=== PATIENT | female | born 1935 | race Caucasian/White ===

== ENCOUNTER → 2017-02-12 | Outpatient (CLI) | payer MEDICARE, OTHER ==
--- NOTE | 2017-02-12 11:24 | XR ---
EXAMINATION TYPE: XR knee complete LT DATE OF EXAM: 02/12/2017 11:11 AM CLINICAL HISTORY: Left knee pain after fall injury. TECHNIQUE: Three views of the left knee are obtained. COMPARISON: None. FINDINGS: There is no acute fracture/dislocation evident in left knee. There is tibial condylar spur ring. There is prominent spur from the superior anterior patellar distal quadriceps tendon attachmen t. The overlying soft tissue appears unremarkable. IMPRESSION: There is no acute fracture or dislocation in the left knee.
== END | disposition home or self-care (01) ==
LOC: RADXRMAIN 10:51
PROVIDERS: ATTEND Family Medicine
DX: S80.02XA Contusion of left knee, initial encounter (principal); X58.XXXA Exposure to other specified factors, initial encounter

== ENCOUNTER 2022-05-07 22:57 | Emergency (ER) | payer MEDICARE, OTHER ==
[2022-05-07 23:09] VITALS: RESP 16; TEMP 98.2
--- NOTE | 2022-05-08 00:29 | ED ---
Fall HPI - General Chief Complaint: Fall Stated Complaint: fall Time Seen by Provider: 05/07/22 23:27 Source: patient Mode of arrival: ambulatory - History of Present Illness Initial Comments: This patient is an 86-year-old woman who presents to be evaluated for right hip pain had come on after she had a fall tonight. Patient states that she fell approximately 8:45 PM. She states that she turned, lost her balance and fell on the kitchen floor. She then was not able to get up immediately. She did take Tylenol which gave some relief but she continues to have some pain she indicates the lateral aspect at the trochanter. Patient denies other injuries in the fall. There was no loss consciousness. At the initial history and physical exam the patient declines analgesics. MD Complaint: fall -: hour(s) Fall From: standing When Fall Occurred: 1-[address] Fall Occurred: home Loss of Consciousness: none Prolonged Down Time?: no Symptoms Prior to Fall: none Location - Extremities: Right: Thigh Severity: moderate Context: tripped/slipped Associated Symptoms: denies - Related Data Allergies Allergy/AdvReac Type Severity Reaction Status Date / Time Penicillins Allergy Unknown Verified 05/07/22 23:05 Sulfa (Sulfonamide Allergy Unknown Verified 05/07/22 23:05 Antibiotics) Review of Systems ROS Statement: Those systems with pertinent positive or pertinent negative responses have been documented in the HPI. ROS Other: All systems not noted in ROS Statement are negative. Constitutional: Denies: fever, weakness Eyes: Denies: vision change Respiratory: Denies: cough, dyspnea Cardiovascular: Denies: chest pain, syncope Gastrointestinal: Denies: abdominal pain, vomiting, diarrhea Genitourinary: Denies: dysuria, hematuria Musculoskeletal: Denies: back pain, joint swelling, arthralgia Skin: Denies: rash Neurological: Denies: headache, weakness, numbness Past Medical History Past Medical History: Hypertension History of Any Multi-Drug Resistant Organisms: None Reported Past Surgical History: Orthopedic Surgery Past Psychological History: No Psychological Hx Reported Smoking Status: Never smoker Past Alcohol Use History: None Reported Past Drug Use History: None Reported General Exam Limitations: no limitations General appearance: alert, in no apparent distress Head exam: Present: atraumatic, normocephalic Eye exam: Present: normal appearance. Absent: scleral icterus, conjunctival injection Neck exam: Present: normal inspection, full ROM. Absent: tenderness Respiratory exam: Present: normal lung sounds bilaterally. Absent: respiratory distress, wheezes, rales, rhonchi, stridor, chest wall tenderness Cardiovascular Exam: Present: regular rate, normal rhythm, normal heart sounds. Absent: systolic murmur, diastolic murmur, rubs, gallop GI/Abdominal exam: Present: soft. Absent: distended, tenderness, guarding, rebound, rigid, mass Extremities exam: Present: normal inspection, normal capillary refill. Absent: pedal edema, calf tenderness Back exam: Present: normal inspection. Absent: CVA tenderness (R), CVA tenderness (L), vertebral tenderness Neurological exam: Present: alert Skin exam: Present: warm, dry, intact, normal color. Absent: rash Course Vital Signs 05/07/22 23:05 Temperature 98.2 F Pulse Rate 87 Respiratory 16 Rate Blood Pressure 114/75 O2 Sat by Pulse 98 Oximetry Disposition Clinical Impression: Fall, Contusion, hip and thigh Disposition: HOME SELF-CARE Condition: Good Instructions (If sedation given, give patient instructions): Fall Prevention for Older Adults (ED) Is patient prescribed a controlled substance at d/c from ED?: No Referrals: Aidan Parker DO [Primary Care Provider] - 1-2 days Decision Time: 01:30
--- NOTE | 2022-05-08 01:05 | XR ---
EXAMINATION TYPE: XR Hip RT and AP Pelvis DATE OF EXAM: 05/08/2022 COMPARISON: NONE HISTORY: Pain TECHNIQUE: 3 views FINDINGS: Hip joint space is normal. I see no fracture nor dislocation. The pelvic ring is intact. Sa croiliac joints are intact. IMPRESSION: Negative exam. No evidence of hip fracture.
[2022-05-08] MEDS ORDERED: IBUPROFEN 600 MG TAB PO STA (01:40)
[2022-05-08 01:55] VITALS: BP 161/70; PULSE 76
== END 2022-05-08 01:54 | disposition home or self-care (01) ==
LOC: EC 22:57
DX: S70.01XA Contusion of right hip, initial encounter (principal); S70.11XA Contusion of right thigh, initial encounter; I10 Essential (primary) hypertension; Z88.0 Allergy status to penicillin; Z88.2 Allergy status to sulfonamides; W01.0XXA Fall on same level from slipping, tripping and stumbling without subsequent striking against object, initial encounter; Y92.090 Kitchen in other non-institutional residence as the place of occurrence of the external cause
CPT/HCPCS: 73502; 99284

== ENCOUNTER → 2022-11-10 | Outpatient (CLI) | payer MEDICARE ==
--- NOTE | 2022-11-11 08:03 | XR ---
EXAMINATION TYPE: XR lumbar spine 2 or 3V DATE OF EXAM: 11/10/2022 CLINICAL HISTORY: pain TECHNIQUE: Three views of the lumbar spine are submitted. COMPARISON: None. FINDINGS: There are 5 lumbar type vertebral bodies identified. The lumbar spine shows satisfactory alignment w ithout evidence of acute fracture or dislocation. Mild loss of vertebral body height involving L1 est imated at 25%. This is of uncertain age and/or etiology. Moderate multilevel degenerative disc space narrowing. Grade 1 anterolisthesis L4 and L5 measuring 4 mm. The overlying soft tissue appears unrema rkable. IMPRESSION: Mild loss of vertebral body height involving L1 estimated at 25%. This is of uncertain age and/or karla ology.
--- NOTE | 2022-11-11 08:14 | XR ---
EXAMINATION TYPE: XR Hip Complete RT DATE OF EXAM: 11/10/2022 CLINICAL HISTORY: pain TECHNIQUE: AP and frogleg views of the right hip are obtained. COMPARISON: None. FINDINGS: There is no acute fracture/dislocation evident. The joint space appears within normal li mits. The overlying soft tissue appears unremarkable. IMPRESSION: 1. There is no acute fracture or dislocation. ICD 10 NO FRACTURE, INITIAL EVALUATION
== END | disposition home or self-care (01) ==
LOC: RADXRMAIN 16:19
PROVIDERS: ATTEND Family Medicine
DX: M25.551 Pain in right hip (principal); M54.50 Low back pain, unspecified; R29.890 Loss of height
CPT/HCPCS: 72100; 73502

== ENCOUNTER 2022-11-15 14:57 | Emergency (ER) | payer MEDICARE ==
[2022-11-15 15:06] VITALS: TEMP 98.2
[2022-11-15] MEDS ORDERED: SODIUM CHLORIDE 0.9% 500 ML 500 ML IV STA (15:11)
[2022-11-15] MEDS ORDERED: ACETAMINOPHEN TAB 325 MG TAB PO STA (15:12)
[2022-11-15 15:58] LABS: Basophils % (A) 1 %; Eosinophils # (A) 0.1 k/uL (0-0.7); Eosinophils % (A) 1 %; HCT 35.7 % (34.0-46.0); HGB 12.3 gm/dL (11.4-16.0); Lymphocytes # (A) 0.9 k/uL (1.0-4.8); Lymphocytes % (A) 13 %; MCH 30.5 pg (25.0-35.0); MCHC 34.5 g/dL (31.0-37.0); MCV 88.4 fL (80.0-100.0); Mean Platelet Volume 7.2; Monocytes # (A) 0.3 k/uL (0-1.0); Monocytes % (A) 5 %; Neutrophils # (A) 5.7 k/uL (1.3-7.7); Neutrophils % (A) 80 %; Platelet Count 358 k/uL (150-450); RBC 4.04 m/uL (3.80-5.40); RDW 12.2 % (11.5-15.5); WBC 7.2 k/uL (3.8-10.6)
--- NOTE | 2022-11-15 16:00 | ED ---
Abdominal Pain HPI - General Chief Complaint: Abdominal Pain Stated Complaint: Abd Pain Time Seen by Provider: 11/15/22 15:02 Source: EMS Mode of arrival: EMS Limitations: no limitations - History of Present Illness Initial Comments: This patient is an 86-year-old woman presenting to have evaluation right lower quadrant abdominal pain. She states that has been going on him or days. She is not able to characterize the pain well. It seems to be moderate intensity. She states it's better if she just sits. Eyes is slightly worse if she lies supine or with activity. She is otherwise not able to characterize it well. The pain seemed to come on shortly after she had a fall which was 5 days ago. She had been seen and had x-rays related to the fall. She was given tramadol to take and she states that one or 2 days after starting this medicine she noted the pain there. There may be a slight element of constipation. MD Complaint: abdominal pain -: days(s) Location: RLQ Radiation: none Migration to: no migration Severity: moderate Quality: other Consistency: constant Improves With: other (Sitting) Worsens With: nothing Associated Symptoms: denies other symptoms - Related Data Allergies Allergy/AdvReac Type Severity Reaction Status Date / Time Penicillins Allergy Unknown Verified 11/15/22 15:06 Sulfa (Sulfonamide Allergy Unknown Verified 11/15/22 15:06 Antibiotics) Review of Systems ROS Statement: Those systems with pertinent positive or pertinent negative responses have been documented in the HPI. ROS Other: All systems not noted in ROS Statement are negative. Constitutional: Denies: fever, chills Respiratory: Denies: cough, dyspnea Cardiovascular: Denies: chest pain, palpitations Gastrointestinal: Reports: abdominal pain. Denies: nausea, vomiting, diarrhea, constipation Genitourinary: Denies: dysuria, hematuria Musculoskeletal: Denies: back pain Skin: Denies: rash Neurological: Denies: headache, weakness, numbness Past Medical History Past Medical History: Hypertension History of Any Multi-Drug Resistant Organisms: None Reported Past Surgical History: Orthopedic Surgery Past Psychological History: No Psychological Hx Reported Smoking Status: Never smoker Past Alcohol Use History: None Reported Past Drug Use History: None Reported General Exam Limitations: no limitations General appearance: alert, in no apparent distress Head exam: Present: atraumatic, normocephalic Eye exam: Present: normal appearance. Absent: scleral icterus, conjunctival injection ENT exam: Present: normal oropharynx Neck exam: Present: normal inspection Respiratory exam: Present: normal lung sounds bilaterally. Absent: respiratory distress, wheezes, rales, rhonchi, stridor Cardiovascular Exam: Present: regular rate, normal rhythm, normal heart sounds. Absent: systolic murmur, diastolic murmur, rubs, gallop GI/Abdominal exam: Present: soft. Absent: distended, tenderness, guarding, rebound, rigid, organomegaly, mass, pulsatile mass, hernia Extremities exam: Present: normal inspection, normal capillary refill. Absent: pedal edema, calf tenderness Back exam: Present: normal inspection. Absent: CVA tenderness (R), CVA tenderness (L) Neurological exam: Present: alert Skin exam: Present: warm, dry, intact, normal color. Absent: rash Course Vital Signs 11/15/22 11/15/22 14:59 21:12 Temperature 98.2 F Pulse Rate 101 H 81 Respiratory 18 15 Rate Blood Pressure 151/103 130/78 O2 Sat by Pulse 99 100 Oximetry Medical Decision Making - Medical Decision Making This patient is an 86-year-old woman here with chief complaint of right lower quadrant pain. The workup of this does reveal that she is having significant constipation. We discussed treatment options and she would like to try enema here followed by something oral for constipation at home. We did give enema with significant stool and she stated that her abdomen was feeling better following the enema. The patient did fall backwards against a wall striking the left posterior chest wall and x-ray was negative for injury there. The patient does have L1 compression fracture, and we discussed admission to see the fiscal specialist here in the hospital, but the patient states that the pain is tolerable and she would like to go home and follow as outpatient. We discussed red flag symptoms of back pain, including urinary retention, loss of bowel continence, worsening pain, weakness of the legs, numbness amongst other symptoms. She will return turn should she have any of these or if there is worsening in anyway. - Lab Data Result diagrams: 11/15/22 15:29 11/15/22 15:29 Lab Results 11/15/22 11/15/22 11/15/22 Range/Units 15:29 15:29 15:29 WBC 7.2 (3.8-10.6) k/uL RBC 4.04 (3.80-5.40) m/uL Hgb 12.3 (11.4-16.0) gm/dL Hct 35.7 (34.0-46.0) % MCV 88.4 (80.0-100.0) fL MCH 30.5 (25.0-35.0) pg MCHC 34.5 (31.0-37.0) g/dL RDW 12.2 (11.5-15.5) % Plt Count 358 (150-450) k/uL MPV 7.2 Neutrophils % 80 % Lymphocytes % 13 % Monocytes % 5 % Eosinophils % 1 % Basophils % 1 % Neutrophils # 5.7 (1.3-7.7) k/uL Lymphocytes # 0.9 L (1.0-4.8) k/uL Monocytes # 0.3 (0-1.0) k/uL Eosinophils # 0.1 (0-0.7) k/uL Basophils # 0.0 (0-0.2) k/uL Sodium 130 L (137-145) mmol/L Potassium 4.3 (3.5-5.1) mmol/L Chloride 95 L (98-107) mmol/L Carbon Dioxide 28 (22-30) mmol/L Anion Gap 7 mmol/L BUN 14 (7-17) mg/dL Creatinine 0.57 (0.52-1.04) mg/dL Est GFR (CKD-EPI)AfAm >90 (>60 ml/min/1.73 sqM) Est GFR (CKD-EPI)NonAf 84 (>60 ml/min/1.73 sqM) Glucose 120 H (74-99) mg/dL Plasma Lactic Acid Brendan 0.8 (0.7-2.0) mmol/L Calcium 9.3 (8.4-10.2) mg/dL Total Bilirubin 0.5 (0.2-1.3) mg/dL AST 46 H (14-36) U/L ALT 41 H (4-34) U/L Alkaline Phosphatase 147 H (38-126) U/L C-Reactive Protein 3.9 H (<1.0) mg/dL Total Protein 6.6 (6.3-8.2) g/dL Albumin 4.2 (3.5-5.0) g/dL Amylase 44 (30-110) U/L Lipase 31 (23-300) U/L Urine Color Urine Appearance (Clear) Urine pH (5.0-8.0) Ur Specific [place] (1.001-1.035) Urine Protein (Negative) Urine Glucose (UA) (Negative) Urine Ketones (Negative) Urine Blood (Negative) Urine Nitrite (Negative) Urine Bilirubin (Negative) Urine Urobilinogen (<2.0) mg/dL Ur Leukocyte Esterase (Negative) Urine RBC (0-5) /hpf Urine WBC (0-5) /hpf Ur Squamous Epith Cells (0-4) /hpf 11/15/22 Range/Units 17:00 WBC (3.8-10.6) k/uL RBC (3.80-5.40) m/uL Hgb (11.4-16.0) gm/dL Hct (34.0-46.0) % MCV (80.0-100.0) fL MCH (25.0-35.0) pg MCHC (31.0-37.0) g/dL RDW (11.5-15.5) % Plt Count (150-450) k/uL MPV Neutrophils % % Lymphocytes % % Monocytes % % Eosinophils % % Basophils % % Neutrophils # (1.3-7.7) k/uL Lymphocytes # (1.0-4.8) k/uL Monocytes # (0-1.0) k/uL Eosinophils # (0-0.7) k/uL Basophils # (0-0.2) k/uL Sodium (137-145) mmol/L Potassium (3.5-5.1) mmol/L Chloride (98-107) mmol/L Carbon Dioxide (22-30) mmol/L Anion Gap mmol/L BUN (7-17) mg/dL Creatinine (0.52-1.04) mg/dL Est GFR (CKD-EPI)AfAm (>60 ml/min/1.73 sqM) Est GFR (CKD-EPI)NonAf (>60 ml/min/1.73 sqM) Glucose (74-99) mg/dL Plasma Lactic Acid Brendan (0.7-2.0) mmol/L Calcium (8.4-10.2) mg/dL Total Bilirubin (0.2-1.3) mg/dL AST (14-36) U/L ALT (4-34) U/L Alkaline Phosphatase (38-126) U/L C-Reactive Protein (<1.0) mg/dL Total Protein (6.3-8.2) g/dL Albumin (3.5-5.0) g/dL Amylase (30-110) U/L Lipase (23-300) U/L Urine Color Colorless Urine Appearance Clear (Clear) Urine pH 6.0 (5.0-8.0) Ur Specific [place] 1.008 (1.001-1.035) Urine Protein Negative (Negative) Urine Glucose (UA) Negative (Negative) Urine Ketones 1+ H (Negative) Urine Blood Negative (Negative) Urine Nitrite Negative (Negative) Urine Bilirubin Negative (Negative) Urine Urobilinogen <2.0 (<2.0) mg/dL Ur Leukocyte Esterase Moderate H (Negative) Urine RBC 1 (0-5) /hpf Urine WBC 8 H (0-5) /hpf Ur Squamous Epith Cells <1 (0-4) /hpf Disposition Clinical Impression: Compression fracture, Constipation Disposition: HOME SELF-CARE Condition: Fair Instructions (If sedation given, give patient instructions): Constipation (ED), Vertebral Compression Fracture (ED) Is patient prescribed a controlled substance at d/c from ED?: No Referrals: Aidan Parker DO [Primary Care Provider] - 1-2 days Danay Garner DO [Doctor of Osteopathic Medicine] - 1-2 days
[2022-11-15 16:36] LABS: ALT 41 U/L (4-34); AST 46 U/L (14-36); African American GFR (CKD) >90 (>60 ml/min/1.73 sqM); Albumin 4.2 g/dL (3.5-5.0); Alkaline Phosphatase 147 U/L (38-126); Amylase 44 U/L (30-110); Anion Gap 7 mmol/L; Blood Urea Nitrogen 14 mg/dL (7-17); C Reactive Protein 3.9 mg/dL (<1.0); Calcium 9.3 mg/dL (8.4-10.2); Carbon Dioxide 28 mmol/L (22-30); Chloride 95 mmol/L (98-107); Glucose 120 mg/dL (74-99); Lipase 31 U/L (23-300); Non-African American GFR(CKD) 84 (>60 ml/min/1.73 sqM); Potassium 4.3 mmol/L (3.5-5.1); Sodium 130 mmol/L (137-145); Total Bilirubin 0.5 mg/dL (0.2-1.3); Total Protein 6.6 g/dL (6.3-8.2)
--- NOTE | 2022-11-15 16:48 | CT ---
EXAMINATION TYPE: CT abdomen pelvis wo con CT DLP: 387.2 mGycm, Automated exposure control for dose reduction was used. DATE OF EXAM: 11/15/2022 4:18 PM COMPARISON: CT abdomen pelvis most recent from CLINICAL INDICATION:Female, 86 years old with history of RLQ abdominal pain; RLQ pain and bloating. TECHNIQUE: Axial CT of the abdomen and pelvis. Sagittal and coronal reformats were created on a [employer] workstation. Contrast used: None Oral contrast used: without Oral Contrast FINDINGS: LOWER CHEST: Posterior dependent subsegmental atelectasis is noted. The heart is mildly enlarged for size. There is coronary artery atherosclerosis and aortic valve leaflet calcifications. ABDOMEN LIVER: Unremarkable GALLBLADDER AND BILE DUCTS: Unremarkable. PANCREAS: Unremarkable. SPLEEN: Unremarkable. ADRENAL GLANDS: Unremarkable. KIDNEYS AND URETERS: No evidence of hydronephrosis or renal calculus. PELVIS BLADDER: Partially distended REPRODUCTIVE: Unremarkable. ABDOMEN & PELVIS STOMACH AND BOWEL: No evidence of bowel obstruction. Large stool burden most pronounced in the cecum which is layering in the pelvis. Appendix is not definitively visualized. PERITONEUM: No evidence of pneumoperitoneum or free fluid. VASCULATURE: No evidence of aortic aneurysm. MUSCULOSKELETAL: No acute osseous abnormalities, multilevel disc degeneration changes there is a comp ression deformity which is age-indeterminate of L1. There is 2 mm retropulsion and at least 50% heigh t loss. LYMPH NODES: No gross evidence for lymphadenopathy. SOFT TISSUE/ABDOMINAL WALL: Unremarkable IMPRESSION: 1. Large stool burden throughout the colon most pronounced in the right lower quadrant involving the cecum and ascending colon.. 2. Age-indeterminate L1 compression deformity with at least 50% height loss 2 mm retropulsion. Corre late with back injury pain
[2022-11-15 17:48] LABS: Appearance,Urine Clear (Clear); Bilirubin,Urine Negative (Negative); Blood,Urine Negative (Negative); Color,Urine Colorless; Glucose,Urine (UA) Negative (Negative); Ketones,Urine 1+ (Negative); Leukocyte Esterase,Urine Moderate (Negative); Nitrite,Urine Negative (Negative); Protein,Urine Negative (Negative); RBC,Urine 1 /hpf (0-5); Specific Gravity,Urine 1.008 (1.001-1.035); Squamous Epithelial Cell,Urine <1 /hpf (0-4); Urobilinogen,Urine <2.0 mg/dL (<2.0); WBC,Urine 8 /hpf (0-5)
[2022-11-15] MEDS ORDERED: traMADol 50 MG TAB PO STA (17:57)
[2022-11-15] MEDS ORDERED: PEG 3350 (236 GM/BTL) + LYTES 4,000 ML BOTTLE PO ONE (20:00)
--- NOTE | 2022-11-15 20:28 | XR ---
EXAMINATION TYPE: XR ribs LT w pa chest xray DATE OF EXAM: 11/15/2022 8:04 PM INDICATION: Patient age:Female; 86 years old; Reason for study: fall injury; [facility]. COMPARISON: CT abdomen pelvis 11/15/2022 TECHNIQUE: Frontal and oblique views of the left with frontal chest radiograph. FINDINGS: The ribs have a normal appearance. No evidence of fracture. Overall, the lungs are clear. Emphysematous changes of the lung apices. The cardiac silhouette is normal in size. No pneumothorax o r pleural effusion. The remaining osseous structures are intact. IMPRESSION RIBS: No acute osseous pathology or acute cardiopulmonary process.
[2022-11-15 21:14] VITALS: BP 130/78; PULSE 81; RESP 15
== END 2022-11-15 21:40 | disposition home or self-care (01) ==
LOC: EC 14:57
DX: S32.018A Other fracture of first lumbar vertebra, initial encounter for closed fracture (principal); K59.00 Constipation, unspecified; I10 Essential (primary) hypertension; Z88.0 Allergy status to penicillin; Z88.2 Allergy status to sulfonamides; W19.XXXA Unspecified fall, initial encounter
CPT/HCPCS: 36415; 74176; 80053; 81001; 82150; 83605; 83690; 85025; 86140; 96360; 99285

== ENCOUNTER → 2022-11-27 | Outpatient (CLI) | payer MEDICARE ==
[2022-11-27 16:20] LABS: African American GFR (CKD) >90 (>60 ml/min/1.73 sqM); Blood Urea Nitrogen 13 mg/dL (7-17); Non-African American GFR(CKD) 82 (>60 ml/min/1.73 sqM)
--- NOTE | 2022-11-27 17:37 | CT ---
EXAMINATION TYPE: CT hip RT wo/w con DATE OF EXAM: 11/27/2022 COMPARISON: HISTORY: 2 recent falls. Right hip and back pain. CT DLP: 577.7 mGycm Automated exposure control for dose reduction was used. CONTRAST: Performed with IV Contrast, patient injected with 100cc mL of Isovue 300. Images obtained from the iliac crest through the subtrochanteric femur with the IV contrast. There is evidence for an acute nondisplaced intertrochanteric fracture right femur. There is no dislo cation. The acetabulum is intact. No evidence of a pelvic mass. No free fluid in the pelvis. No ingui nal hernia. IMPRESSION: There is intertrochanteric fracture right femur which in retrospect is not changed in position compar ed to CT scan of 11/15/2022.
== END | disposition home or self-care (01) ==
LOC: RADCTMAIN 15:28
PROVIDERS: ATTEND Family Medicine
DX: S72.144A Nondisplaced intertrochanteric fracture of right femur, initial encounter for closed fracture (principal); M25.551 Pain in right hip
CPT/HCPCS: 82565; 84520; 36415; 73702; Q9967